=== PATIENT | male | born 1965 | race Caucasian/White ===

== ENCOUNTER 2016-05-20 12:14 | Emergency (ER) | payer OTHER, MEDICAID ==
--- NOTE | 2016-05-20 12:51 | EDPHY ---
H & P Smoking Status: Unknown if ever smoked Time Seen by Provider: 05/20/16 12:15 HPI/ROS: CHIEF COMPLAINT: M1 hold HISTORY OF PRESENT ILLNESS: 51-year-old male presents to the emergency department by EMS on an M1 hold. The patient apparently was at [facility] and the psychiatrist placed him on an M1 hold and brought him to the emergency department. The patient states that he has been compliant with his medications. He has bipolar and schizophrenia. He was at [facility] for last few months and just discharged a few weeks ago. He denies substance abuse or alcohol. He denies chest pain or difficulty breathing. Denies abdominal pain. Denies any reported trauma. He denies suicidal ideation. Denies homicidal ideation. Denies auditory or visual hallucinations. REVIEW OF SYSTEMS: Constitutional: No fever, no chills. Eyes: No double or blurry vision. ENT: No sore throat. Respiratory: No cough, no shortness of breath. Cardiac: No chest pain. Gastrointestinal: No abdominal pain, vomiting or diarrhea. Genitourinary: No dysuria. Musculoskeletal: No neck or back pain. Skin: No rashes. Neurological: No headache. (Reyna Aguero) Past Medical/Surgical History: Bipolar, schizophrenia (More,Reyna M) Social History: Single and lives alone in [place] (Reyna Aguero M) Physical Exam: General Appearance: Alert, no distress. Flat affect. Poor eye contact. Eyes: Pupils equal and round. Extraocular motions are all intact. ENT: Mouth: Mucous membranes moist. Respiratory: No wheezing, rhonchi, or rales, lungs are clear to auscultation. Cardiovascular: Regular rate and rhythm. Gastrointestinal: Abdomen is soft and nontender, no masses, no rebound or guarding, bowel sounds normal. Neurological: Alert and oriented x 3, cranial nerves II through XII grossly intact Skin: Warm and dry, no rashes. Musculoskeletal: Nontender to palpate along the cervical, thoracic or lumbar spine. Neck is supple. Extremities: Full range of motion and no peripheral edema. Psychiatric: Patient is oriented X 3, there is no agitation. (Reyna Aguero M) Constitutional: Initial Vital Signs Temperature (C) 36.9 C 05/20/16 12:14 Heart Rate 86 05/20/16 12:14 Respiratory Rate 18 05/20/16 12:14 Blood Pressure 132/81 H 05/20/16 12:14 O2 Sat (%) 93 05/20/16 12:14 O2 Delivery Mode Room Air Allergies/Adverse Reactions: chlorpromazine HCl [From Thorazine] Allergy (Verified 08/28/15 13:36) divalproex sodium [From Depakote] Allergy (Verified 08/28/15 13:36) Home Medications: Medication Instructions Recorded Unobtainable 08/28/15 Medical Decision Making ED Course/Re-evaluation: 51-year-old male presents to the emergency department on M1 hold. Once the patient is medically cleared, he will be evaluated by mental health. (Reyna Aguero) Care assumed by me from Reyna Aguero pending mental health evaluation. Patient has been seen by mental health. He will require placement. [address] Dillon pending placement. There been no issues with this patient during my care. (Remy Remy) Differential Diagnosis: Depression including functional and major depression, situational depression, medication side effect, drugs and alcohol abuse. (Reyna Aguero) Care Turn Over: Care will be turned over to Dr. Remy for diposition and plan. (Reyna Aguero) - Data Points Laboratory Results: Laboratory Results 05/20/16 12:40 05/20/16 12:40 05/20/16 05/20/16 05/20/16 13:33 12:40 12:40 WBC 10.92 10^3/uL H 10^3/uL (3.80-9.50) RBC 5.23 10^6/uL 10^6/uL (4.40-6.38) Hgb 15.2 g/dL g/dL (13.7-17.5) Hct 44.5 % % (40.0-51.0) MCV 85.1 fL fL (81.5-99.8) MCH 29.1 pg pg (27.9-34.1) MCHC 34.2 g/dL g/dL (32.4-36.7) RDW 12.5 % % (11.5-15.2) Plt Count 235 10^3/uL 10^3/uL (150-400) MPV 10.5 fL fL (8.7-11.7) Neut % (Auto) 64.2 % % (39.3-74.2) Lymph % (Auto) 24.0 % % (15.0-45.0) [place] % (Auto) 8.0 % % (4.5-13.0) Eos % (Auto) 2.6 % % (0.6-7.6) Baso % (Auto) 0.7 % % (0.3-1.7) Nucleat RBC Rel Count 0.0 % % (0.0-0.2) Absolute Neuts (auto) 7.02 10^3/uL H 10^3/uL (1.70-6.50) Absolute Lymphs (auto) 2.62 10^3/uL 10^3/uL (1.00-3.00) Absolute Monos (auto) 0.87 10^3/uL H 10^3/uL (0.30-0.80) Absolute Eos (auto) 0.28 10^3/uL 10^3/uL (0.03-0.40) Absolute Basos (auto) 0.08 10^3/uL 10^3/uL (0.02-0.10) Absolute Nucleated RBC 0.00 10^3/uL 10^3/uL (0-0.01) Immature Gran % 0.5 % % (0.0-1.1) Immature Gran # 0.05 10^3/uL 10^3/uL (0.00-0.10) Sodium 134 mEq/L mEq/L (134-144) Potassium 4.6 mEq/L mEq/L (3.5-5.2) Chloride 95 mEq/L L mEq/L (97-110) Carbon Dioxide 27 mEq/l mEq/l (22-31) Anion Gap 12 mEq/L mEq/L (8-16) BUN 17 mg/dL mg/dL (7-23) Creatinine 0.9 mg/dL mg/dL (0.7-1.3) Estimated GFR > 60 Glucose 257 mg/dL H mg/dL (70-100) Calcium 9.4 mg/dL mg/dL (8.5-10.4) TSH 1.410 uIU/mL uIU/mL (0.465-4.680) Urine Opiates Screen NEGATIVE (NEGATIVE) Urine Barbiturates NEGATIVE (NEGATIVE) Ur Phencyclidine Scrn NEGATIVE (NEGATIVE) Ur Amphetamine Screen NEGATIVE (NEGATIVE) U Benzodiazepines Scrn NON-NEGATIVE H (NEGATIVE) Urine Cocaine Screen NEGATIVE (NEGATIVE) U Marijuana (THC) Screen NEGATIVE (NEGATIVE) Ethyl Alcohol < 10 mg/dL mg/dL (0-10) Departure - Departure Clinical Impression: Bipolar 1 disorder Schizophrenia Qualifiers: Schizophrenia type: unspecified Qualified Code(s): F20.9 - Schizophrenia, unspecified Condition: Good Referrals: Patient,NotPresent [Unknown] - As per Instructions
[2016-05-20 13:13] LABS: % IMMATURE GRANULYOCYTES 0.5 % (0.0-1.1); ABSOLUTE IMMATURE GRANULOCYTES 0.05 10^3/uL (0.00-0.10); ADD DIFF? NO; ADD MORPH? NO; ADD SCAN? NO; ATYPICAL LYMPHOCYTE FLAG 30 (0-99); FRAGMENT RBC FLAG 0 (0-99); HEMATOCRIT 44.5 % (40.0-51.0); HEMOGLOBIN 15.2 g/dL (13.7-17.5); LEFT SHIFT FLG 0 (0-99); LIPEMIA HEMOLYSIS FLAG 90 (0-99); MEAN CELL HEMOGLOBIN 29.1 pg (27.9-34.1); MEAN CELL HEMOGLOBIN CONCENTR. 34.2 g/dL (32.4-36.7); MEAN CELL VOLUME 85.1 fL (81.5-99.8); MEAN PLATELET VOLUME 10.5 fL (8.7-11.7); PLATELET CLUMPS FLAG 0 (0-99); PLATELET COUNT 235 10^3/uL (150-400); RED BLOOD CELL COUNT 5.23 10^6/uL (4.40-6.38); RED CELL DISTRIBUTION WIDTH 12.5 % (11.5-15.2)
[2016-05-20 13:33] LABS: ANION GAP 12 mEq/L (8-16); CALCIUM 9.4 mg/dL (8.5-10.4); CARBON DIOXIDE 27 mEq/l (22-31); CHLORIDE 95 mEq/L (97-110); CREATININE 0.9 mg/dL (0.7-1.3); ETHANOL SERUM < 10 mg/dL (0-10); GLOMERULAR FILTRATION RATE > 60; GLUCOSE 257 mg/dL (70-100); POTASSIUM 4.6 mEq/L (3.5-5.2); SODIUM 134 mEq/L (134-144)
[2016-05-21 08:56] VITALS: RESP 18; O2SAT 94
[2016-05-21 10:05] LABS: ANION GAP 8 mEq/L (8-16); CALCIUM 9.3 mg/dL (8.5-10.4); CARBON DIOXIDE 29 mEq/l (22-31); CHLORIDE 96 mEq/L (97-110); CREATININE 0.9 mg/dL (0.7-1.3); GLOMERULAR FILTRATION RATE > 60; GLUCOSE 250 mg/dL (70-100); LITHIUM 0.2 mEq/L (0.6-1.2); POTASSIUM 4.9 mEq/L (3.5-5.2); SODIUM 133 mEq/L (134-144)
[2016-05-21] MEDS ORDERED: metFORMIN HCL 850 MG TAB PO SCH (10:30)
[2016-05-21] MEDS ORDERED: QUEtiapine FUMARATE 300 MG TAB PO SCH (10:30)
[2016-05-21] MEDS ORDERED: BENZTROPINE MESYLATE 1 MG TAB PO SCH (10:30)
[2016-05-21] MEDS ORDERED: SERTRALINE HCL 25 MG TAB PO SCH (10:30)
[2016-05-21] MEDS ORDERED: LITHIUM CARBONATE ER 450 MG TAB PO SCH (10:30)
[2016-05-21] MEDS ORDERED: metFORMIN HCL 500 MG TAB PO SCH (11:00)
[2016-05-21 13:18] VITALS: BP 99/62; PULSE 102; TEMP 98.6
[2016-05-22] MEDS ORDERED: QUEtiapine FUMARATE 200 MG TAB PO SCH (09:00)
== END 2016-05-21 13:18 ==
LOC: EDUNIT#
DX: F31.9 Bipolar disorder, unspecified (principal); F20.9 Schizophrenia, unspecified
CPT/HCPCS: 80305; G0480

== ENCOUNTER 2016-07-03 22:11 | Inpatient (IN) | payer OTHER, MEDICAID ==
--- NOTE | 2016-07-03 22:19 | EDPHY ---
H & P Source: Patient, Police - Medical/Surgical History Hx Asthma: No Hx Chronic Respiratory Disease: No Hx Diabetes: Yes Hx Cardiac Disease: No Hx Renal Disease: No Hx Cirrhosis: No Hx Alcoholism: No Hx HIV/AIDS: No Hx Splenectomy or Spleen Trauma: No Other PMH: diabetes. Psychiatric illness when askled pt stated " all of them" - Social History Smoking Status: Unknown if ever smoked HPI/ROS: HPI CHIEF COMPLAINT: Detainer, Court Order to go to er with police, "I will not talk to you" HISTORY OF PRESENT ILLNESS: This patient 51-year-old male significant past medical history for schizoaffective disorder and bipolar he presents emergency room on M1 hold by police after he has missed multiple appointments with his [facility] in psychiatrist. He has missed multiple appointments they have concerned that he is not taking his court-ordered medications. Due to him missing multiple appointments they called police to place him on M1 hold and bring him to the emergency room. Currently upon arrival to the emergency room he comes in police custody he is on a court ordered M1 hold. He will not talk to me he will not answer any of my questions he seems very angry and frustrated that he is here in the emergency room. History and review of systems somewhat limited due to patient not wanting to speak with me. Past Medical History: Schizoaffective disorder, bipolar disorder Past Surgical History: Unknown surgical history Social History: Unknown at this time Family History: Unknown ROS REVIEW OF SYSTEMS: Limited due to patient wanting to speak with me. Exam Constitutional appears angry and frustrated triage nursing summary reviewed, vital signs reviewed, awake/alert. Eyes normal conjunctivae and sclera, EOMI, PERRLA. HENT normal inspection, atraumatic, moist mucus membranes, no epistaxis, neck supple/ no meningismus, no raccoon eyes. Respiratory clear to auscultation bilaterally, normal breath sounds, no respiratory distress, no wheezing. Cardiovascular rate normal, regular rhythm, no murmur, no edema, distal pulses normal. Gastrointestinal soft, non-tender, no rebound, no guarding, normal bowel sounds, no distension, no pulsatile mass. Genitourinary no CVA tenderness. Musculoskeletal no midline vertebral tenderness, full range of motion, no calf swelling, no tenderness of extremities, no meningismus, good pulses, neurovascularly intact. Skin pink, warm, & dry, no rash, skin atraumatic. Neurologic awake, alert and oriented x 3, AAOx3, moves all 4 extremities equally, motor intact, sensory intact, CN II-XII intact, normal cerebellar, normal vision, normal speech. Psychiatric angry frustrated Heme/Lymph/Immune no lymphadenopathy. Differential Diagnosis: Includes but is not limited to in a particular order, underlying schizoaffective disorder, bipolar disorder, depression, ace, acute psychosis, medication noncompliance Medical Decision Making: this patient is on Detaine, court-ordered to come to er , missing multiple psychiatric appointments. Unclear if he is taking his medications. History of schizoaffective bipolar disorder. Patient have a blood draw for medical clearance he will need automatic mental health evaluation given court ordered M1 hold. Patient will not interact with me her speak with me does appear angry. He did tell me the "fuck off" 2228; at this time blood will be drawn for medical clearance. (Gregor Dillon) Constitutional: Initial Vital Signs Temperature (C) 36.9 C 07/03/16 22:25 Heart Rate 120 H 07/03/16 22:25 Respiratory Rate 16 07/03/16 22:25 Blood Pressure 170/98 H 07/03/16 22:25 O2 Sat (%) 94 07/03/16 22:25 O2 Delivery Mode Room Air Allergies/Adverse Reactions: chlorpromazine HCl [From Thorazine] Allergy (Verified 07/03/16 22:24) divalproex sodium [From Depakote] Allergy (Verified 07/03/16 22:24) Home Medications: Medication Instructions Recorded Atorvastatin Calcium [Lipitor 10 10 mg PO HS 05/21/16 mg (*)] Benztropine Mesylate [Cogentin (*)] 1 mg PO BID 05/21/16 Nardin Carbonate ER [Eskalith Cr 450 mg PO HS 05/21/16 450 mg (*)] Fleming-3 Fatty Acids [Fish Oil 1000 1,000 mg PO DAILY 05/21/16 mg (*)] Pioglitazone HCl [Actos 15mg (*)] 45 mg PO DAILY 05/21/16 metFORMIN HCL [Glucophage 500 mg 1,000 mg PO BIDMEAL 05/21/16 (*)] QUEtiapine FUMARATE [Seroquel 200 200 mg PO HS 07/04/16 mg (*)] fluPHENAZine HCL [Fluphenazine HCl] 50 mg PO Q21D 07/06/16 Medical Decision Making ED Course/Re-evaluation: 0700: Patient signed out to me by Dr. Dillon at shift change. 1030: I reassessed the patient. He has become verbally abusive to staff, repeatedly shouting "fuck you bitch, you cocksucker" and calling me an " inferior subspecies." He has been placed on a mental health hold and will be evaluated by mental health team. 1342: Consulted with mental health team. They are seeking inpatient placement. (Zion Beckham) 3pm--I assumed care of this pt at shift change. He is diabetic and takes metformin. I will order his usual dose of metformin and check blood sugars qac. He is also on lithium; lithium level ordered. Pharmacy will do a medication reconciliation. 11pm-signed over to Dr. Dillon at shift change (Kayla Johnson) Assumed care of the patient at shift change at 3:00 p.m. pending psychiatric placement. The patient is turned over to Dr. Baig at 11pm pending placement. (Hank Armijo) 4:00 a.m.- The patient has been stable throughout my shift thus far. He is still awaiting psychiatric placement. The case will be turned over to Dr. Beckham at change of shift at 7:00 a.m.. (Stefany Gonzales) 0550AM: No acute events overnight. Detainer. Patient pending placement. At 7: 00 a.m. patient turned over to Dr. Beckham (Gregor Dillon) - Data Points Laboratory Results: Laboratory Results 07/03/16 22:52 07/03/16 22:25 Medications Given: Discontinued Medications Atorvastatin Calcium (Lipitor) 10 mg PO EDNOW ONE Stop: 07/05/16 20:37 Last Admin: 07/05/16 21:04 Dose: 10 mg Benztropine Mesylate (Cogentin) 1 mg PO BID ONE Stop: 07/05/16 12:54 Last Admin: 07/05/16 14:02 Dose: 1 mg Benztropine Mesylate (Cogentin) 1 mg PO EDNOW ONE Stop: 07/05/16 20:31 Last Admin: 07/05/16 21:04 Dose: 1 mg Nardin Carbonate (Eskalith Cr) 450 mg PO ONCE ONE Stop: 07/05/16 18:01 Last Admin: 07/05/16 21:04 Dose: 450 mg Nardin Carbonate (Nardin Carbonate) 450 mg PO EDNOW ONE Stop: 07/07/16 09:19 Last Admin: 07/06/16 10:03 Dose: 450 mg Lorazepam (Ativan) 1 mg PO EDNOW ONE Stop: 07/04/16 10:38 Last Admin: 07/04/16 10:38 Dose: 1 mg Lorazepam (Ativan) 1 mg PO EDNOW ONE Stop: 07/06/16 13:21 Last Admin: 07/06/16 13:43 Dose: 1 mg Metformin HCl (Glucophage) 1,000 mg PO BID ON LICENSE OF [facility] Stop: 01/01/17 20:59 Last Admin: 07/06/16 10:05 Dose: Not Given Metformin HCl (Glucophage) 1,000 mg PO ONCE ONE Stop: 07/05/16 20:31 Last Admin: 07/05/16 21:04 Dose: 1,000 mg Pioglitazone HCl (Actos) 45 mg PO DAILY ON LICENSE OF [facility] Stop: 01/02/17 08:59 Last Admin: 07/06/16 10:04 Dose: 45 mg Quetiapine Fumarate (Seroquel) 50 mg PO BID ON LICENSE OF [facility] Stop: 01/01/17 12:59 Last Admin: 07/06/16 10:05 Dose: Not Given Quetiapine Fumarate (Seroquel) 50 mg PO ONCE ONE Stop: 07/05/16 20:37 Last Admin: 07/05/16 21:05 Dose: Not Given Quetiapine Fumarate (Seroquel) 400 mg PO EDNOW ONE Stop: 07/05/16 21:01 Last Admin: 07/05/16 21:05 Dose: 400 mg Departure - Departure Disposition: [facility] IP Clinical Impression: Acute (undifferentiated) schizophrenia Condition: Good
[2016-07-03 22:37] LABS: ADD DIFF? NO; ADD MORPH? NO
[2016-07-03 22:42] LABS: ADD SCAN? NO
[2016-07-03 22:54] LABS: ANION GAP 15 mEq/L (8-16); CALCIUM 9.8 mg/dL (8.5-10.4); CARBON DIOXIDE 21 mEq/l (22-31); CHLORIDE 97 mEq/L (97-110); CREATININE 0.7 mg/dL (0.7-1.3); ETHANOL SERUM < 10 mg/dL (0-10); GLOMERULAR FILTRATION RATE > 60; GLUCOSE 239 mg/dL (70-100); POTASSIUM 4.6 mEq/L (3.5-5.2); SALICYLATE < 1.0 mg/dL (2.0-20.0); SODIUM 133 mEq/L (134-144)
[2016-07-03 23:04] LABS: % IMMATURE GRANULYOCYTES 0.5 % (0.0-1.1); ABSOLUTE IMMATURE GRANULOCYTES 0.06 10^3/uL (0.00-0.10); ADD DIFF? NO; ADD MORPH? NO; ADD SCAN? NO; ATYPICAL LYMPHOCYTE FLAG 20 (0-99); FRAGMENT RBC FLAG 0 (0-99); HEMOGLOBIN 15.4 g/dL (13.7-17.5); LEFT SHIFT FLG 0 (0-99); LIPEMIA HEMOLYSIS FLAG 90 (0-99); MEAN CELL HEMOGLOBIN CONCENTR. 34.2 g/dL (32.4-36.7); MEAN CELL VOLUME 84.7 fL (81.5-99.8); MEAN PLATELET VOLUME 9.8 fL (8.7-11.7); PLATELET CLUMPS FLAG 10 (0-99); PLATELET COUNT 260 10^3/uL (150-400); RED BLOOD CELL COUNT 5.31 10^6/uL (4.40-6.38)
[2016-07-04] MEDS ORDERED: LORazepam 1 MG TAB PO ONE (10:37)
[2016-07-04 17:43] LABS: LITHIUM < 0.2 mEq/L (0.6-1.2)
[2016-07-05] MEDS ORDERED: BENZTROPINE MESYLATE 1 MG TAB PO ONE ×2 (12:53→20:30)
[2016-07-05] MEDS ORDERED: OLANZapine 10 MG/2 ML VIAL IM ONE (13:29)
[2016-07-05] MEDS: QUEtiapine FUMARATE 50 MG TAB PO SCH ×2 (14:01→21:05)
[2016-07-05] MEDS: metFORMIN HCL 500 MG TAB PO SCH (14:02)
[2016-07-05] MEDS: PIOGLITAZONE HCL 15 MG TAB PO SCH (14:02)
[2016-07-05] MEDS ORDERED: QUEtiapine FUMARATE 50 MG TAB PO SCH (18:00)
[2016-07-05] MEDS ORDERED: LITHIUM CARBONATE ER 450 MG TAB PO ONE (18:00)
[2016-07-05] MEDS ORDERED: QUEtiapine FUMARATE 25 MG TAB PO ONE (20:29)
[2016-07-05] MEDS ORDERED: metFORMIN HCL 500 MG TAB PO ONE (20:30)
[2016-07-05] MEDS ORDERED: QUEtiapine FUMARATE 50 MG TAB PO ONE (20:36)
[2016-07-05] MEDS ORDERED: ATORVASTATIN CALCIUM 10 MG TAB PO ONE (20:36)
[2016-07-05] MEDS ORDERED: QUEtiapine FUMARATE 200 MG TAB PO ONE (21:00)
[2016-07-06] MEDS: metFORMIN HCL 500 MG TAB PO SCH ×3 (10:04→17:06)
[2016-07-06] MEDS: PIOGLITAZONE HCL 15 MG TAB PO SCH (10:04)
[2016-07-06] MEDS: QUEtiapine FUMARATE 50 MG TAB PO SCH ×2 (10:04→10:05)
[2016-07-06] MEDS ORDERED: LORazepam 1 MG TAB PO ONE (13:20)
[2016-07-06] MEDS ORDERED: OLANZapine DISINTEGR 10 MG TAB PO PRN (16:45)
[2016-07-06] MEDS ORDERED: QUEtiapine FUMARATE 50 MG TAB PO PRN (16:46)
[2016-07-06] MEDS ORDERED: ACETAMINOPHEN 325 MG TAB PO PRN (16:49)
[2016-07-06] MEDS ORDERED: LORazepam 0.5 MG TAB PO PRN (16:56)
[2016-07-06] MEDS ORDERED: MAGNESIUM HYDROXIDE 30 ML UDCUP PO PRN (16:56)
[2016-07-06] MEDS ORDERED: MAG HYDROX/AL HYDROX/SIMETH 30 ML UDCUP PO PRN (16:57)
[2016-07-06] MEDS ORDERED: NICOTINE POLACRILEX 2 MG GUM B PRN (16:57)
[2016-07-06] MEDS: BENZTROPINE MESYLATE 1 MG TAB PO SCH (20:34)
[2016-07-06] MEDS: ATORVASTATIN CALCIUM 10 MG TAB PO SCH (20:34)
[2016-07-06] MEDS: LITHIUM CARBONATE ER 450 MG TAB PO SCH (20:34)
[2016-07-06] MEDS: QUEtiapine FUMARATE 200 MG TAB PO SCH (20:34)
[2016-07-07] MEDS: metFORMIN HCL 500 MG TAB PO SCH ×2 (08:19→16:54)
[2016-07-07] MEDS: OMEGA-3 FATTY ACIDS 1,000 MG CAP PO SCH (08:20)
[2016-07-07] MEDS: BENZTROPINE MESYLATE 1 MG TAB PO SCH ×2 (08:20→20:38)
[2016-07-07] MEDS: PIOGLITAZONE HCL 15 MG TAB PO SCH (08:21)
[2016-07-07] MEDS ORDERED: LITHIUM CARBONATE 300 MG TAB PO ONE (09:18)
--- NOTE | 2016-07-07 15:14 | BAPA ---
[f rep st] ADMISSION PSYCHIATRIC ASSESSMENT PATIENT IDENTIFICATION: The patient presents as a 51-year-old, white male, who is admitted to [address] [place] [address] on an M1 hold following medical clearance in the emergency room, for complaints of an acute psychotic decompensation. The patient has a chronic history positive for a major psychotic disorder, consistent with a spectrum disorder on the axis between Schizophrenia and Schizoaffective disorder. He is on SSDI for an extended period of time. 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 He has remained actively certified on a long-term certification and court-ordered medications which are due to next be reviewed on 10/25/2016. He has progressively decompensated since his discharge from the [facility] inpatient psychiatry service on 06/10. CHIEF COMPLAINT: "There is no respect; take your college education and leave me alone." HISTORY OF PRESENT ILLNESS: As referenced above, the patient has a chronic syndromal history associated with major instability over the years. He is a long-term open case with [facility]. Over the past year, he has spent most of his time as an inpatient over a series of multiple hospitalizations. Most recently, he was hospitalized at [facility] in March for complaints of an acute psychotic decompensation associated with aggressive dyscontrol. While in [facility], the patient was discontinued on 2 depo medications he was receiving as an outpatient, including Invega 234 mg IM q.4 weeks, alternating with Abilify 400 mg IM q.4 weeks. This change was recommended by his community psychiatrist with P-Dr. Carolyn Cortez. He was transitioned onto Prolixin Decanoate, initially dosed at 37.4 mg. The patient reportedly partially restabilized and was stepped down to live temporarily at the [facility]. However, he regressed over a period of several weeks and required rehospitalization at the [facility] inpatient service on 05/21/2016. He remained at [facility] through his discharge on 06/10/2016 when he was discharged directly to return to his appointment at the care of Dr. Cortez and the [facility] team. While at [facility], he did receive a depo Prolixin injection dosed at 50 mg and was discharged with the next date for injection scheduled for 07/01/2016. The patient has a chronic history when living alone of allowing street vagrants to live in his house. These people often are addictive and their habits and his apartment residence has become known to the local community as an active drug house. This apparently began to happen again after his discharge from [facility]. The patient activates his methamphetamine habit when his house is full of people from the addictive community. He predictably began to deteriorate. With attempts to get him to come to the clinic for his injection, the staff observed his mental status to become increasingly agitated, verbally abusive, and ultimately resistant to taking the usual cab ride into the clinic to get the injection. Therefore, the patient was unlikely to have been medicated since his discharge 06/10 until he was brought in a decompensated state on a court-ordered M3 recommended by his community psychiatrist, Dr. Cortez. He was brought to the [facility] emergency room by the police in the p.m. 2016. On direct exam, the patient presented initially as angry, noncommunicative, alert, and obviously preoccupied with internal stimuli given his acute psychosis. He did cooperate with a physical exam which was negative for any focal or systemic acuity. On direct exam by the [facility] territory sales consultant, the patient presented as disheveled, irritable, guarded, evidencing lability of affect, suspiciousness, and largely uncooperative in answering questions. He was noted during his time in the emergency room to be, at times, verbally abusive to nursing staff and to the examining emergency room physician. In the emergency room, he was medicated with home medications including Lipitor, Cogentin, lithium 450 mg x1, Ativan 1 mg x1, Seroquel 50 mg p.o. x1 and 400 mg p.o. x1. He also cooperated with taking metformin, pioglitazone, Zoloft 25 mg p.o., and Prolixin 10 mg p.o. The patient stayed overnight in the emergency room until a bed was available on . He was then admitted on an M1 hold, deemed gravely disabled secondary to his psychotic acuity and acute inability to care for himself safely in the emergency room. Lab screens included a BMP- negative other than an elevated blood sugar of 239, and an unremarkable CBC. Apparently, a toxic screen was not successfully obtained. The admitting staff noted the patient to be irritable and withdrawn other than for sporadic, verbally abusive comments. Patient did cooperate with the admission protocol by [facility] and withdrew to his room. PAST PSYCHIATRIC HISTORY: Details to be clarified in intake phase. We do know the patient has been engaged in a alf certification and COM.. His psychiatric history is chronic, including his initial period of certified treatment begun on 04/01/2003. He is a long-term open client with [facility] and currently is followed by Dr. Carolyn Cortez and the [facility] Community Treatment Team. The patient is known to have a chronic thought disorder which improves partially with decreased intensity and decreased aggressive acting up when he is sustained on depo medications and remains off methamphetamine. Per intake from Dr. Cortez, the patient is never free of psychosis and is extremely responsive to the destructive effects of methamphetamine on his mental status when he uses. He has a primary caregiver in his biologic mother who cleans his apartment, gives him money and prepares his food. In effect, this is a history consistent with a marginal community adaptation which, at times, on a regular basis, places the patient at high risk. MEDICAL HISTORY: The patient currently has no active medical problems other than his dyscontrolled diabetes mellitus-type 2; blood sugar as reference was 239 on admission; the patient was obviously not complying with his metformin regimen. KNOWN ALLERGIES: The patient has known medication allergies to Thorazine and Depakote; there are no known food or environmental allergies. MEDICAL REVIEW OF SYSTEMS: Negative. SUBSTANCE ABUSE HISTORY: The patient has a chronic known use problem with methamphetamine primarily; patient has also abused THC and alcohol in the past, along with the question of benzodiazepines. LEGAL HISTORY: The patient has an extensive legal record; details will be clarified but we do know the patient has been arrested for assaulting police and other people and/or being disruptive with verbal abuse and psychosis in public. Patient's current legal status is unclear and will be determined in intake phase. PERSONAL HISTORY/FAMILY HISTORY: Details to be clarified from previous records. We do know the patient has been for 4-5 years. It is unclear if he has any biologic children. We do know biologic family, including his mother and sister, live in the community and mother particularly is supportive. We do know that patient's common-law several years ago, reportedly from cancer. We do know the patient's residence in the community is known as a "drug house" by the local community, particularly the local police force. MENTAL STATUS EXAM: On direct exam, the patient presents as an unkempt, middle- age man looking his stated age. The patient presents as reticent, irritable, and intermittently verbally abusive, focused at myself, during brief contacts. His thought pattern, when he does speak, is floridly paranoid, referential, and dismissive. He remains in behavioral control and does not evidence any physically threatening behavior. His appearance suggests now self-neglect of ADLs. He is not cooperative during the contact in allowing me to assess his mental status in more detail, his short-term and long-term syndromal history. He does hear reintegrative support. He does state that he will cooperate with a depo injection, which will be offered to him tomorrow. FORMULATION: The patient presents as a 51-year-old, white male, who presents with a chronic and unstable history, positive for a major psychotic disorder on the spectrum axis between Schizophrenia and Schizoaffective Disorder. He also presents with a severe substance abuse history involving methamphetamine, and to a lesser degree, alcohol, THC, and possibly benzodiazepines. This decompensation appears similar to a chronic pattern of not complying with treatment effectively following inpatient discharge and complicating his psychotic vulnerability by using methamphetamine. Urine toxic screen was not initially identified but is identified and tested positively for amphetamines, benzodiazepines, and THC. In addition to the primary immediate goal of stabilizing the patient's mental status to an optimal degree, we will also focus on obtaining a more detailed assessment long-term and collaborate with the community outpatient team and Dr. Cortez to formulate a definitive discharge plan to maintain the patient in a sober environment and optimize his stabilizing and maintaining a stable mental status. ADMISSION DIAGNOSIS: [place] I: 1. Schizophrenic Spectrum Disorder-acute exacerbation, including florid psychosis and dyscontrolled verbal and physical aggressive behaviors prior to admission. 2. Methamphetamine use disorder-chronic, severe, active prior to admission. 3. THC use disorder-severe, chronic, active prior to admission. 4. Alcohol use disorder-chronic, moderate, question activity prior to admission. 5. Rule out benzodiazepine use disorder. [place] II: Deferred. [place] III: 1. No active medical problems. 2. S/P diabetes mellitus-2, dyscontrol secondary to noncompliance with metformin regimen. [place] IV: Stressors associated with activation of patient's addictive disorder and noncompliance with psychiatric medications since his last inpatient discharge 06/10/2016. [place] V: Admission Global Assessment of Functioning 30. INITIAL TREATMENT PLAN: 1. Nursing: Complete admission assessment; monitor patient for safety and assault; reinforce compliance with medications and cares; orient patient as tolerated with the structure of the social milieu and group program, and invite participation when further stabilized. 2. Psychiatry: Complete admission assessment; provide daily E/M contacts to complete diagnostic formulation, apply reintegrative psychotherapeutic to contacts daily, assess and manage patient's psychoactive medication needs; ally patient to a definitive discharge plan with links in place at discharge. 3. Clinical Coordinator: See patient daily to expand the database; contact relevant collaterals to complete information base and workup; formulate definitive discharge plan with links in place at discharge. 4. Admission medical consultation: Pending. 5. Medications: Will currently continue patient on standing Seroquel at 200 mg p.o. at bedtime and Zyprexa 10 mg p.o. q.4h p.r.n.; will proceed with depo Prolixin injection at 75 mg IM within the next 48 hours; will confer with Dr. Cortez about medication management in 1st phase. 6. Primary inpatient goals: Stabilize mental status sufficient for discharge; complete diagnostic formulation and link patient to definitive discharge plan which will enhance his sobriety and compliance with community treatment. /[id number]/MODL MTDD
--- NOTE | 2016-07-07 16:10 | GHP ---
[f rep st] HISTORY AND PHYSICAL DATE OF ADMISSION: 07/06/2016 CHIEF COMPLAINT: Missing appearance at his court mandated mental health provider. HISTORY OF PRESENT ILLNESS: A 51-year-old male with a history of schizoaffective disorder and bipol ar who presented to the emergency department on 07/06/2016 after being placed on an M1 hold by syed duncan, when noted to miss his [facility] appointments with his psychiatrist which were court ordered. Upon arrival to the inpatient psychiatric unit, patient is complaining of his rights being violated. Denies any chest pain. Denies shortness of breath. Denies vision changes. Denies head ache. Denies abdominal pain, nausea, or vomiting. Denies any recent diarrhea, dysuria, hematuria, rashes, or known sick contacts. PAST MEDICAL HISTORY: 1. Schizoaffective disorder. 2. Bipolar disorder. SOCIAL HISTORY: Negative for tobacco or alcohol he. Denies the use of illicit drugs or marijuana. FAMILY HISTORY: The patient tells me is unknown. PHYSICAL EXAMINATION: VITAL SIGNS: Blood pressure 117/73, heart rate 95, respiratory rate 16, 98% on room air, 36.5. GENERAL: This is a healthy-appearing middle-aged male in no acute distress. HE ENT: Notable for dry mucous membranes. Eye exam is negative for any icterus. CARDIAC: Patient is regular rate and rhythm. PULMONARY: He is clear to auscultation bilaterally. GASTROINTESTINAL: Positive bowel sounds. Abdomen is soft and nontender in all 4 quadrants. MUSCULOSKELETAL: Negativ e for any lower extremity edema. SKIN: Negative for any rashes. NEUROLOGIC: The patient is alert and oriented. PSYCHIATRIC: He is agitated and frustrated. LABORATORY DATA: White count is 11.03, hematocrit 45, platelets 260. ASSESSMENT AND PLAN: This is a 51-year-old male with schizoaffective disorder. Schizoaffective disorder: This will be managed by the primary psychiatric team. Upon review of the patient's examination and laboratory workup, there are no reversible medical issues currently prese nt. We will happily follow along with any issues that arise. I have discussed the case with the RN on the psychiatric floor. The patient was encouraged to take good oral intake. They will call [facility] h questions. /[id number]/MODL
[2016-07-07] MEDS: ATORVASTATIN CALCIUM 10 MG TAB PO SCH (20:38)
[2016-07-07] MEDS: QUEtiapine FUMARATE 200 MG TAB PO SCH (20:39)
[2016-07-07] MEDS: LITHIUM CARBONATE ER 450 MG TAB PO SCH (20:39)
[2016-07-08] MEDS: BENZTROPINE MESYLATE 1 MG TAB PO SCH ×2 (08:31→20:36)
[2016-07-08] MEDS: metFORMIN HCL 500 MG TAB PO SCH ×2 (08:33→16:59)
[2016-07-08] MEDS: PIOGLITAZONE HCL 15 MG TAB PO SCH (08:33)
[2016-07-08] MEDS: OMEGA-3 FATTY ACIDS 1,000 MG CAP PO SCH (08:33)
[2016-07-08] MEDS ORDERED: FLUPHENAZINE DECANOATE 25 MG/ML 5 ML VIAL IM SCH (10:30)
--- NOTE | 2016-07-08 11:49 | SOAPPROG ---
MARISOL Progress Note Assessment/Plan: Assessment: Plan: 07/08/16 11:41 DAY ' UPDATE: Nursing repots has remained in behavioral control, evidencing acute PI thinking in form of sporadic outbursts of verbally abusive language; isolating but taking meals with other patients in DR in control and did extend some social time in DR yesterday; INTAKE/ DR. 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 She recommends keeping pt on Prolixin Decanoate at 50 mg IM which i will do with expected injection later today. ON EXAM: pt seen sitting up in DR; maintains control and tolerates contact better altho does reach point in time when he again begins to escalate with PI and verbal harshness; does understand that the first prolixin injection will be later today ASSESSMENT/PLAN: residual psychotic acuity/ first Prolixin depot injection today = 50 mg IM; continue current management plan; call to [facility] pending to expand the data base 07/09/16 07:54 Objective: Vital Signs Temp Pulse Resp BP Pulse Ox 36.6 C 100 14 125/76 H 95 07/08/16 00:12 07/08/16 00:12 07/08/16 00:12 07/08/16 00:12 07/08/16 00:12 ICD10 Worksheet Patient Problems: Problems Problem Status Onset Acute (undifferentiated) schizophrenia Acute
[2016-07-08] MEDS: ATORVASTATIN CALCIUM 10 MG TAB PO SCH (20:36)
[2016-07-08] MEDS: LITHIUM CARBONATE ER 450 MG TAB PO SCH (20:37)
[2016-07-08] MEDS: QUEtiapine FUMARATE 200 MG TAB PO SCH (20:37)
[2016-07-09] MEDS: BENZTROPINE MESYLATE 1 MG TAB PO SCH ×2 (08:55→20:36)
[2016-07-09] MEDS: PIOGLITAZONE HCL 15 MG TAB PO SCH (08:56)
[2016-07-09] MEDS: OMEGA-3 FATTY ACIDS 1,000 MG CAP PO SCH (08:56)
[2016-07-09] MEDS: metFORMIN HCL 500 MG TAB PO SCH ×2 (08:56→17:09)
--- NOTE | 2016-07-09 11:17 | SOAPPROG ---
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 She recommends keeping pt on Prolixin Decanoate at 50 mg IM which i will do with expected injection later today. ON EXAM: pt seen sitting up in DR; maintains control and tolerates contact better altho does reach point in time when he again begins to escalate with PI and verbal harshness; does understand that the first prolixin injection will be later today ASSESSMENT/PLAN: residual psychotic acuity/ first Prolixin depot injection today = 50 mg IM; continue current management plan; call to [place] pending to expand the data base 07/09/16 11:10 UPDATE: Nursing reports that pt cooperated with depot injection yesterday pm without incident, has remained in behavioral, control, isolative, still vulnerable to abusive language form time to time and continues to appear internally preoccupied ON EXAM: seen briefly, rapidly regressed to verbal invectives after neutral speech for 2 - 3 min; stopped when I withdrew; continues with compliance with po meds, taking meals; minimal interaction with other pts albeit not verbally abusive with other pts. Assessment/PLAN: residual psychotic acuity in early phase improvement/ will reassess oral medications, outreach call to [facility] pending Objective: Vital Signs Temp Pulse Resp BP Pulse Ox 36.3 C 119 H 15 115/70 96 07/09/16 04:04 07/09/16 04:04 07/09/16 04:04 07/09/16 04:04 07/09/16 04:04 ICD10 Worksheet Patient Problems: Problems Problem Status Onset Acute (undifferentiated) schizophrenia Acute
[2016-07-09] MEDS: ATORVASTATIN CALCIUM 10 MG TAB PO SCH (20:35)
[2016-07-09] MEDS: QUEtiapine FUMARATE 200 MG TAB PO SCH (20:35)
[2016-07-09] MEDS: LITHIUM CARBONATE ER 450 MG TAB PO SCH (20:36)
--- NOTE | 2016-07-10 08:20 | SOAPPROG ---
MARISOL Progress Note Assessment/Plan: Assessment: Plan: 07/08/16 11:41 DAY ' UPDATE: Nursing repots has remained in behavioral control, evidencing acute PI thinking in form of sporadic outbursts of verbally abusive language; isolating but taking meals with other patients in DR in control and did extend some social time in DR yesterday; INTAKE/ DR. 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 She recommends keeping pt on Prolixin Decanoate at 50 mg IM which i will do with expected injection later today. ON EXAM: pt seen sitting up in DR; maintains control and tolerates contact better altho does reach point in time when he again begins to escalate with PI and verbal harshness; does understand that the first prolixin injection will be later today ASSESSMENT/PLAN: residual psychotic acuity/ first Prolixin depot injection today = 50 mg IM; continue current management plan; call to [facility] pending to expand the data base 07/09/16 07:54 Objective: Vital Signs Temp Pulse Resp BP Pulse Ox 36.6 C 97 16 134/79 H 95 07/10/16 05:21 07/10/16 05:21 07/10/16 05:21 07/10/16 05:21 07/10/16 05:21 ICD10 Worksheet Patient Problems: Problems Problem Status Onset Acute (undifferentiated) schizophrenia Acute
[2016-07-10] MEDS: metFORMIN HCL 500 MG TAB PO SCH ×2 (08:29→17:02)
[2016-07-10] MEDS: OMEGA-3 FATTY ACIDS 1,000 MG CAP PO SCH (08:29)
[2016-07-10] MEDS: BENZTROPINE MESYLATE 1 MG TAB PO SCH ×2 (08:29→20:34)
[2016-07-10] MEDS: PIOGLITAZONE HCL 15 MG TAB PO SCH (08:29)
--- NOTE | 2016-07-10 14:19 | SOAPPROG ---
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 She recommends keeping pt on Prolixin Decanoate at 50 mg IM which i will do with expected injection later today. ON EXAM: pt seen sitting up in DR; maintains control and tolerates contact better altho does reach point in time when he again begins to escalate with PI and verbal harshness; does understand that the first prolixin injection will be later today ASSESSMENT/PLAN: residual psychotic acuity/ first Prolixin depot injection today = 50 mg IM; continue current management plan; call to [facility] pending to expand the data base 07/09/16 14:13 DAY UPDATE: Nursing reports pt compliant with injection yesterday, continues compliant with cares/meds, slightly more conversant and visible in millieu ON EXAM: seen in room; calm but dismissive - turns back to me with moving his chair; begin quiet paranoid rant when I persist to engage him but content is more detailed and in conversant mode. Pt did hear that Dr Cuevas will speak together 07/13 to address long-term planning; pt did mention life goals include playing music and staying "free". ASSESSMENT/PLAN: some decrease in acuity of observable psychosis/ no change in current meds and management plan Objective: Vital Signs Temp Pulse Resp BP Pulse Ox 36.6 C 97 16 134/79 H 95 07/10/16 05:21 07/10/16 05:21 07/10/16 05:21 07/10/16 05:21 07/10/16 05:21 ICD10 Worksheet Patient Problems: Problems Problem Status Onset Acute (undifferentiated) schizophrenia Acute
[2016-07-10] MEDS: ATORVASTATIN CALCIUM 10 MG TAB PO SCH (20:34)
[2016-07-10] MEDS: QUEtiapine FUMARATE 200 MG TAB PO SCH (20:34)
[2016-07-10] MEDS: LITHIUM CARBONATE ER 450 MG TAB PO SCH (20:34)
[2016-07-11] MEDS: PIOGLITAZONE HCL 15 MG TAB PO SCH (08:19)
[2016-07-11] MEDS: BENZTROPINE MESYLATE 1 MG TAB PO SCH ×2 (08:20→20:38)
[2016-07-11] MEDS: OMEGA-3 FATTY ACIDS 1,000 MG CAP PO SCH (08:20)
[2016-07-11] MEDS: metFORMIN HCL 500 MG TAB PO SCH ×2 (08:20→17:23)
--- NOTE | 2016-07-11 15:32 | SOAPPROG ---
SOAP Progress Note Assessment/Plan: Assessment: Plan: 07/11/16 15:36 Remains agitated, but clearly improving. CCM. Subjective: Pt seen, discussed with staff, chart reviewed. He continues to pace the halls, swearing and conversing with unseen persons. He is compliant with meds. No bx problems. Objective: Vital Signs Temp Pulse Resp BP Pulse Ox 36.4 C 91 19 105/69 94 07/11/16 06:00 07/11/16 06:00 07/11/16 06:00 07/11/16 06:00 07/11/16 06:00 MSE: Agitated, pacing, but calm and interactive on 1:1. Marginally groomed. Affect is constricted, stable. Mood is "fine." TP generally linear. TC reveals some odd ideas and possible paranoia on interview, but constant RIS, with bizarre, loose ramblings such as "You bet the sons of bitches know about communion" followed by "Because I'm the one with the answers, not that f----er. " - Time Spent With Patient Time Spent With Patient: 25" - Pending Discharge Pending Discharge Within 24 Hours: No Pending Discharge Within 48 Hours: No ICD10 Worksheet Patient Problems: Problems Problem Status Onset Acute (undifferentiated) schizophrenia Acute
[2016-07-11] MEDS: LITHIUM CARBONATE ER 450 MG TAB PO SCH (20:37)
[2016-07-11] MEDS: ATORVASTATIN CALCIUM 10 MG TAB PO SCH (20:37)
[2016-07-11] MEDS: QUEtiapine FUMARATE 200 MG TAB PO SCH (20:38)
[2016-07-12] MEDS: metFORMIN HCL 500 MG TAB PO SCH ×2 (08:07→17:30)
[2016-07-12] MEDS: BENZTROPINE MESYLATE 1 MG TAB PO SCH ×2 (08:07→20:40)
[2016-07-12] MEDS: PIOGLITAZONE HCL 15 MG TAB PO SCH (08:07)
[2016-07-12] MEDS: OMEGA-3 FATTY ACIDS 1,000 MG CAP PO SCH (08:08)
--- NOTE | 2016-07-12 19:02 | SOAPPROG ---
SOAP Progress Note Assessment/Plan: Assessment: Plan: 07/11/16 15:36 Remains agitated, but clearly improving. CCM. 07/12/16 19:03 Continued gradual improvement. Too agitated and profane/verbally aggressive to consider d/c at this time. I discusses with him the criteria needed for the STC to be lifted inc: decrease in overall agitation, normal social interactions and medication compliance. CCM. Subjective: Pt seen, discussed with staff. A bit more agitated this morning. Pacing the halls singing loudly. Sitting on couch in front of TV swearing, ranting. Remains redirectable, however. Engaging with effort. Objective: Vital Signs Temp Pulse Resp BP Pulse Ox 36.4 C 97 16 109/72 96 07/12/16 06:00 07/12/16 06:00 07/12/16 06:00 07/12/16 06:00 07/12/16 06:00 MSE: Moderately agitated, verbally aggressive towards unseen persons. Able to engage with me, however. Pleasant and approp. Affect is constricted, angry. Mood is "shitty." TP tangential. TC reveals continued paranoid, yazidi, sexual thoughts/delusions, RIS, IOR's. - Time Spent With Patient Time Spent With Patient: 15" - Pending Discharge Pending Discharge Within 24 Hours: No Pending Discharge Within 48 Hours: No ICD10 Worksheet Patient Problems: Problems Problem Status Onset Acute (undifferentiated) schizophrenia Acute
[2016-07-12] MEDS: ATORVASTATIN CALCIUM 10 MG TAB PO SCH (20:40)
[2016-07-12] MEDS: LITHIUM CARBONATE ER 450 MG TAB PO SCH (20:40)
[2016-07-12] MEDS: QUEtiapine FUMARATE 200 MG TAB PO SCH (20:41)
--- NOTE | 2016-07-13 06:30 | SOAPPROG ---
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 She recommends keeping pt on Prolixin Decanoate at 50 mg IM which i will do with expected injection later today. ON EXAM: pt seen sitting up in DR; maintains control and tolerates contact better altho does reach point in time when he again begins to escalate with PI and verbal harshness; does understand that the first prolixin injection will be later today ASSESSMENT/PLAN: residual psychotic acuity/ first Prolixin depot injection today = 50 mg IM; continue current management plan; call to [place] pending to expand the data base 07/09/16 11:10 DAY UPDATE: Nursing reports that pt cooperated with depot injection yesterday pm without incident, has remained in behavioral, control, isolative, still vulnerable to abusive language form time to time and continues to appear internally preoccupied ON EXAM: seen briefly, rapidly regressed to verbal invectives after neutral speech for 2 - 3 min; stopped when I withdrew; continues with compliance with po meds, taking meals; minimal interaction with other pts albeit not verbally abusive with other pts. Assessment/PLAN: residual psychotic acuity in early phase improvement/ will reassess oral medications, outreach call to MOC pending 07/10/14 14:00 DAY UPDATE: remains residually with psychotic acuity per Nursing report; behaviorally in control and compliant with meds ON EXAM: continues to only tolerate brief contacts and then disorganizes with angry invectives and withdraws. ASSESSMENT/PLAN: slow-paced reintegration; pt quieter and calmer with more visibility in milieu and some selective social contact with other patients; eating in dining room, compliant with cares/meds/ no change in current meds; will review case with Dr. Cuevas on Wednesday; reassess meds post weekend. 07/13/16 DAY UPDATE: Objective: Vital Signs Temp Pulse Resp BP Pulse Ox 36.3 C 112 H 14 101/70 95 07/13/16 05:21 07/13/16 05:21 07/13/16 05:21 07/13/16 05:21 07/13/16 05:21 ICD10 Worksheet Patient Problems: Problems Problem Status Onset Acute (undifferentiated) schizophrenia Acute
[2016-07-13] MEDS: OMEGA-3 FATTY ACIDS 1,000 MG CAP PO SCH (08:17)
[2016-07-13] MEDS: BENZTROPINE MESYLATE 1 MG TAB PO SCH ×2 (08:17→20:28)
[2016-07-13] MEDS: metFORMIN HCL 500 MG TAB PO SCH ×2 (08:17→16:53)
[2016-07-13] MEDS: PIOGLITAZONE HCL 15 MG TAB PO SCH (08:17)
[2016-07-13] MEDS: QUEtiapine FUMARATE 200 MG TAB PO SCH (20:28)
[2016-07-13] MEDS: LITHIUM CARBONATE ER 450 MG TAB PO SCH (20:28)
[2016-07-13] MEDS: ATORVASTATIN CALCIUM 10 MG TAB PO SCH (20:28)
[2016-07-14 06:16] VITALS: TEMP 98.2
--- NOTE | 2016-07-14 07:51 | SOAPPROG ---
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 She recommends keeping pt on Prolixin Decanoate at 50 mg IM which i will do with expected injection later today. ON EXAM: pt seen sitting up in DR; maintains control and tolerates contact better altho does reach point in time when he again begins to escalate with PI and verbal harshness; does understand that the first prolixin injection will be later today ASSESSMENT/PLAN: residual psychotic acuity/ first Prolixin depot injection today = 50 mg IM; continue current management plan; call to [place] pending to expand the data base 07/09/16 11:10 DAY UPDATE: Nursing reports that pt cooperated with depot injection yesterday pm without incident, has remained in behavioral, control, isolative, still vulnerable to abusive language form time to time and continues to appear internally preoccupied ON EXAM: seen briefly, rapidly regressed to verbal invectives after neutral speech for 2 - 3 min; stopped when I withdrew; continues with compliance with po meds, taking meals; minimal interaction with other pts albeit not verbally abusive with other pts. Assessment/PLAN: residual psychotic acuity in early phase improvement/ will reassess oral medications, outreach call to MOC pending 07/10/14 14:00 DAY UPDATE: remains residually with psychotic acuity per Nursing report; behaviorally in control and compliant with meds ON EXAM: continues to only tolerate brief contacts and then disorganizes with angry invectives and withdraws. ASSESSMENT/PLAN: slow-paced reintegration; pt quieter and calmer with more visibility in milieu and some selective social contact with other patients; eating in dining room, compliant with cares/meds/ no change in current meds; will review case with Dr. Cuevas on Wednesday; reassess meds post weekend. 07/13/16 14:30 DAY UPDATE: Nursing reports that pt evidences improvement over the weekend; also noted in psychiatrist's PN's - pt calmer, more visible in milieu, thought process better organized when interqcting with staff and patients; still observed with self-dialogging incidents in which pt is irritable, using invectives in conversation with ? hallucinated persons; remains compliant with cares/med. INTAKE: spoke with Dr. Cuevas to update case clinically; she reports 2 hour meeting today with her community Team about planning post DC; no resolution reached to the dilemma created with his pattern of returning home post DC and resuming meth use; also reactive stress a/w with the transport to Clinic to get depot injection a second factor in driving pt's reactive crises; she states further discussions with senior [facility] clinical administrators happening later in week to try to find a solution to best followup for this patient. I said extending inpt stay and increasing depot dosing with next injection is our plan to optimize his reintegration. We will also taper Seroquel prior to DC as Dr. Cuevas pooints out pt has never complied with oral meds post DC by history ON EXAM: Pt acutally apologized for offensive language shared with me prior to the weekend; thought process very concrete and slightly vague but reality-based ; responsive to reintegrative support and positive feedback ASSESSMENT/PLAN: improving but not at optimal baseline/ inpt course extended and will updose depot Prolixin at next injection.. 07/14/16 DAY UPDATE: Objective: Vital Signs Temp Pulse Resp BP Pulse Ox 36.8 C 92 18 124/75 H 95 07/14/16 06:00 07/14/16 06:00 07/14/16 06:00 07/14/16 06:00 07/14/16 06:00 ICD10 Worksheet Patient Problems: Problems Problem Status Onset Acute (undifferentiated) schizophrenia Acute
[2016-07-14] MEDS: PIOGLITAZONE HCL 15 MG TAB PO SCH (08:30)
[2016-07-14] MEDS: BENZTROPINE MESYLATE 1 MG TAB PO SCH ×2 (08:30→20:19)
[2016-07-14] MEDS: metFORMIN HCL 500 MG TAB PO SCH ×2 (08:30→16:47)
[2016-07-14] MEDS: OMEGA-3 FATTY ACIDS 1,000 MG CAP PO SCH (08:30)
[2016-07-14] MEDS: QUEtiapine FUMARATE 200 MG TAB PO SCH (20:19)
[2016-07-14] MEDS: LITHIUM CARBONATE ER 450 MG TAB PO SCH (20:19)
[2016-07-14] MEDS: ATORVASTATIN CALCIUM 10 MG TAB PO SCH (20:19)
[2016-07-15 06:15] VITALS: BP 117/78; PULSE 95; RESP 14; O2SAT 97
--- NOTE | 2016-07-15 06:57 | SOAPPROG ---
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 She recommends keeping pt on Prolixin Decanoate at 50 mg IM which i will do with expected injection later today. ON EXAM: pt seen sitting up in DR; maintains control and tolerates contact better altho does reach point in time when he again begins to escalate with PI and verbal harshness; does understand that the first prolixin injection will be later today ASSESSMENT/PLAN: residual psychotic acuity/ first Prolixin depot injection today = 50 mg IM; continue current management plan; call to [place] pending to expand the data base 07/09/16 11:10 DAY UPDATE: Nursing reports that pt cooperated with depot injection yesterday pm without incident, has remained in behavioral, control, isolative, still vulnerable to abusive language form time to time and continues to appear internally preoccupied ON EXAM: seen briefly, rapidly regressed to verbal invectives after neutral speech for 2 - 3 min; stopped when I withdrew; continues with compliance with po meds, taking meals; minimal interaction with other pts albeit not verbally abusive with other pts. Assessment/PLAN: residual psychotic acuity in early phase improvement/ will reassess oral medications, outreach call to [facility]OC pending 07/10/14 14:00 DAY UPDATE: remains residually with psychotic acuity per Nursing report; behaviorally in control and compliant with meds ON EXAM: continues to only tolerate brief contacts and then disorganizes with angry invectives and withdraws. ASSESSMENT/PLAN: slow-paced reintegration; pt quieter and calmer with more visibility in milieu and some selective social contact with other patients; eating in dining room, compliant with cares/meds/ no change in current meds; will review case with Dr. Cuevas on Wednesday; reassess meds post weekend. 07/13/16 14:30 DAY UPDATE: Nursing reports that pt evidences improvement over the weekend; also noted in psychiatrist's PN's - pt calmer, more visible in milieu, thought process better organized when interacting with staff and patients; still observed with self-dialoging incidents in which pt is irritable, using invectives in conversation with ? hallucinated persons; remains compliant with cares/med. INTAKE: spoke with Dr. Cuevas to update case clinically; she reports 2 hour meeting today with her community Team about planning post DC; no resolution reached to the dilemma created with his pattern of returning home post DC and resuming meth use; also reactive stress a/w with the transport to Clinic to get depot injection a second factor in driving pt's reactive crises; she states further discussions with senior [facility] clinical administrators happening later in week to try to find a solution to best followup for this patient. I said extending inpt stay and increasing depot dosing with next injection is our plan to optimize his reintegration. We will also taper Seroquel prior to DC as Dr. uCevas points out pt has never complied with oral meds post DC by history ON EXAM: Pt actually apologized for offensive language shared with me prior to the weekend; thought process very concrete and slightly vague but reality-based ; responsive to reintegrative support and positive feedback ASSESSMENT/PLAN: improving but not at optimal baseline/ inpt course extended and will updose depot Prolixin at next injection.. 07/14/16 DAY UPDATE: Nursing reports pt is remaining in better behavioral control and thought process continues to clear; internal preoccupations observed to be lessening; continues compliant with cares/med. ON EXAM: presents a calm, cooperative, conversant at very concrete and somewhat loosely associated level; affect remains more neutral; gives me permission to call his mother; accepts that inpt stay extended to further stabilize and reformulate DC planning in conjunction with [facility] Team and Dr. Cuevas. ASSESSMENT/PLAN: paced improvement with gradually resolving psychotic acuity/ no change in current meds and management plan 07/15/16 DAY UPDATE: Objective: Vital Signs Temp Pulse Resp BP Pulse Ox 36.8 C 95 14 117/78 97 07/15/16 06:00 07/15/16 06:00 07/15/16 06:00 07/15/16 06:00 07/15/16 06:00 ICD10 Worksheet Patient Problems: Problems Problem Status Onset Acute (undifferentiated) schizophrenia Acute
[2016-07-15] MEDS: metFORMIN HCL 500 MG TAB PO SCH ×2 (09:16→17:18)
[2016-07-15] MEDS: BENZTROPINE MESYLATE 1 MG TAB PO SCH (09:16)
[2016-07-15] MEDS: PIOGLITAZONE HCL 15 MG TAB PO SCH (09:16)
[2016-07-15] MEDS: OMEGA-3 FATTY ACIDS 1,000 MG CAP PO SCH (09:17)
[2016-07-15] MEDS ORDERED: FLUPHENAZINE HCL PO SCH (14:15)
--- NOTE | 2016-07-15 14:25 | SOAPPROG ---
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 She recommends keeping pt on Prolixin Decanoate at 50 mg IM which i will do with expected injection later today. ON EXAM: pt seen sitting up in DR; maintains control and tolerates contact better altho does reach point in time when he again begins to escalate with PI and verbal harshness; does understand that the first prolixin injection will be later today ASSESSMENT/PLAN: residual psychotic acuity/ first Prolixin depot injection today = 50 mg IM; continue current management plan; call to [place] pending to expand the data base 07/09/16 11:10 DAY UPDATE: Nursing reports that pt cooperated with depot injection yesterday pm without incident, has remained in behavioral, control, isolative, still vulnerable to abusive language form time to time and continues to appear internally preoccupied ON EXAM: seen briefly, rapidly regressed to verbal invectives after neutral speech for 2 - 3 min; stopped when I withdrew; continues with compliance with po meds, taking meals; minimal interaction with other pts albeit not verbally abusive with other pts. Assessment/PLAN: residual psychotic acuity in early phase improvement/ will reassess oral medications, outreach call to [facility] pending 07/10/14 14:00 DAY UPDATE: remains residually with psychotic acuity per Nursing report; behaviorally in control and compliant with meds ON EXAM: continues to only tolerate brief contacts and then disorganizes with angry invectives and withdraws. ASSESSMENT/PLAN: slow-paced reintegration; pt quieter and calmer with more visibility in milieu and some selective social contact with other patients; eating in dining room, compliant with cares/meds/ no change in current meds; will review case with Dr. Cuevas on Wednesday; reassess meds post weekend. 07/13/16 14:30 DAY UPDATE: Nursing reports that pt evidences improvement over the weekend; also noted in psychiatrist's PN's - pt calmer, more visible in milieu, thought process better organized when interacting with staff and patients; still observed with self-dialoging incidents in which pt is irritable, using invectives in conversation with ? hallucinated persons; remains compliant with cares/med. INTAKE: spoke with Dr. Cuevas to update case clinically; she reports 2 hour meeting today with her community Team about planning post DC; no resolution reached to the dilemma created with his pattern of returning home post DC and resuming meth use; also reactive stress a/w with the transport to Clinic to get depot injection a second factor in driving pt's reactive crises; she states further discussions with senior [facility] clinical administrators happening later in week to try to find a solution to best followup for this patient. I said extending inpt stay and increasing depot dosing with next injection is our plan to optimize his reintegration. We will also taper Seroquel prior to DC as Dr. Cuevas points out pt has never complied with oral meds post DC by history ON EXAM: Pt actually apologized for offensive language shared with me prior to the weekend; thought process very concrete and slightly vague but reality-based ; responsive to reintegrative support and positive feedback ASSESSMENT/PLAN: improving but not at optimal baseline/ inpt course extended and will updose depot Prolixin at next injection.. 07/14/16 DAY UPDATE: Nursing reports pt is remaining in better behavioral control and thought process continues to clear; internal preoccupations observed to be lessening; continues compliant with cares/med. ON EXAM: presents a calm, cooperative, conversant at very concrete and somewhat loosely associated level; affect remains more neutral; gives me permission to call his mother; accepts that inpt stay extended to further stabilize and reformulate DC planning in conjunction with [facility] Team and Dr. Cuevas. ASSESSMENT/PLAN: paced improvement with gradually resolving psychotic acuity/ no change in current meds and management plan 07/15/16 1415 DAY Brief Discharge Note UPDATE: Nursing continues to report paced improvement with diminishing psychotic acuity ON EXAM: first contact pt presented with no overt psychosis, concrete and reality focussed, responsive to reintegrative support. second contact later in day pt presented again in organized and non-overtly psychotic manner; told pt about the upcoming transfer to [facility] which we just confirmed with [facility] as the disposition worked out by the [facility] system; pt accepted the news and maintained his composure, asked appropriate questions about why? and for how long? and accepted my answers a/w his building on the progress here to finish out his recovery at [facility] and LOS to be determined by his hospital Team at [facility] ASSESSMENT/PLAN: improving course; opt to be dc'd to [facility] later today call to MOC pending Meds as referenced below see DC Summary Objective: Vital Signs Temp Pulse Resp BP Pulse Ox 36.8 C 95 14 117/78 97 07/15/16 06:00 07/15/16 06:00 07/15/16 06:00 07/15/16 06:00 07/15/16 06:00 ICD10 Worksheet Patient Problems: Problems Problem Status Onset Acute (undifferentiated) schizophrenia Acute
--- NOTE | 2016-07-15 14:27 | SOAPPROG ---
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 She recommends keeping pt on Prolixin Decanoate at 50 mg IM which i will do with expected injection later today. ON EXAM: pt seen sitting up in DR; maintains control and tolerates contact better altho does reach point in time when he again begins to escalate with PI and verbal harshness; does understand that the first prolixin injection will be later today ASSESSMENT/PLAN: residual psychotic acuity/ first Prolixin depot injection today = 50 mg IM; continue current management plan; call to [place] pending to expand the data base 07/09/16 11:10 DAY UPDATE: Nursing reports that pt cooperated with depot injection yesterday pm without incident, has remained in behavioral, control, isolative, still vulnerable to abusive language form time to time and continues to appear internally preoccupied ON EXAM: seen briefly, rapidly regressed to verbal invectives after neutral speech for 2 - 3 min; stopped when I withdrew; continues with compliance with po meds, taking meals; minimal interaction with other pts albeit not verbally abusive with other pts. Assessment/PLAN: residual psychotic acuity in early phase improvement/ will reassess oral medications, outreach call to MOC pending 07/10/14 14:00 DAY UPDATE: remains residually with psychotic acuity per Nursing report; behaviorally in control and compliant with meds ON EXAM: continues to only tolerate brief contacts and then disorganizes with angry invectives and withdraws. ASSESSMENT/PLAN: slow-paced reintegration; pt quieter and calmer with more visibility in milieu and some selective social contact with other patients; eating in dining room, compliant with cares/meds/ no change in current meds; will review case with Dr. Cuevas on Wednesday; reassess meds post weekend. 07/13/16 14:30 DAY UPDATE: Nursing reports that pt evidences improvement over the weekend; also noted in psychiatrist's PN's - pt calmer, more visible in milieu, thought process better organized when interacting with staff and patients; still observed with self-dialoging incidents in which pt is irritable, using invectives in conversation with ? hallucinated persons; remains compliant with cares/med. INTAKE: spoke with Dr. Cuevas to update case clinically; she reports 2 hour meeting today with her community Team about planning post DC; no resolution reached to the dilemma created with his pattern of returning home post DC and resuming meth use; also reactive stress a/w with the transport to Clinic to get depot injection a second factor in driving pt's reactive crises; she states further discussions with senior [facility] clinical administrators happening later in week to try to find a solution to best followup for this patient. I said extending inpt stay and increasing depot dosing with next injection is our plan to optimize his reintegration. We will also taper Seroquel prior to DC as Dr. Cuevas points out pt has never complied with oral meds post DC by history ON EXAM: Pt actually apologized for offensive language shared with me prior to the weekend; thought process very concrete and slightly vague but reality-based ; responsive to reintegrative support and positive feedback ASSESSMENT/PLAN: improving but not at optimal baseline/ inpt course extended and will updose depot Prolixin at next injection.. 07/14/16 DAY UPDATE: Nursing reports pt is remaining in better behavioral control and thought process continues to clear; internal preoccupations observed to be lessening; continues compliant with cares/med. ON EXAM: presents a calm, cooperative, conversant at very concrete and somewhat loosely associated level; affect remains more neutral; gives me permission to call his mother; accepts that inpt stay extended to further stabilize and reformulate DC planning in conjunction with [facility] Team and Dr. Cuevas. ASSESSMENT/PLAN: paced improvement with gradually resolving psychotic acuity/ no change in current meds and management plan 07/15/16 1415 DAY Brief Discharge Note UPDATE: Nursing continues to report paced improvement with diminishing psychotic acuity ON EXAM: first contact pt presented with no overt psychosis, concrete and reality focussed, responsive to reintegrative support. second contact later in day pt presented again in organized and non-overtly psychotic manner; told pt about the upcoming transfer to [facility] which we just confirmed with [facility] as the disposition worked out by the P system; pt accepted the news and maintained his composure, asked appropriate questions about why? and for how long? and accepted my answers a/w his building on the progress here to finish out his recovery at [facility] and LOS to be determined by his hospital Team at [facility] ASSESSMENT/PLAN: improving course; opt to be dc'd to [facility] later today call to MOC pending Meds as referenced below see DC Summary 07/15/16 14:26 Medications Generic Name Dose Route Start Last Admin Trade Name Freq PRN Reason Stop Dose Admin Quetiapine Fumarate 50 mg 07/06/16 16:46 Seroquel PO 01/02/17 16:45 Q4 PRN ANXIETY Quetiapine Fumarate 200 mg 07/06/16 21:00 07/12/16 20:41 Seroquel PO 01/02/17 20:59 200 mg HS THONG [place] Carbonate 450 mg 07/06/16 21:00 07/14/16 20:19 Eskalith Cr PO 01/02/17 20:59 450 mg HS THONG Pioglitazone HCl 45 mg 07/07/16 09:00 07/15/16 09:16 Actos PO 01/03/17 08:59 45 mg DAILY THONG Fluphenazine Decanoate 50 mg 07/08/16 10:30 07/08/16 14:15 Fluphenazine Decanoate IM 01/04/17 10:29 50 mg Q21D THONG [place] Carbonate 450 mg 07/06/16 21:00 07/12/16 20:40 Eskalith Cr PO 01/02/17 20:59 450 mg HS THONG Lorazepam 0.5 - 1 mg 07/06/16 16:56 Ativan PO 01/02/17 16:55 Q4 PRN ANXIETY Olanzapine 10 mg 07/06/16 16:45 Zyprexa Zydis PO 01/02/17 16:44 Q4 PRN Agitation Atorvastatin Calcium 10 mg 07/06/16 21:00 07/14/16 20:19 Lipitor PO 01/02/17 20:59 10 mg HS THONG Benztropine Mesylate 1 mg 07/06/16 21:00 07/15/16 09:16 Cogentin PO 01/02/17 20:59 1 mg BID THONG Metformin HCl 500 mg 07/06/16 18:00 07/15/16 09:16 Glucophage PO 01/02/17 17:59 500 mg BIDMEAL THONG Josmn-0-Fuya Ethyl Esters 1,000 mg 07/07/16 09:00 07/15/16 09:17 Fish Oil PO 01/03/17 08:59 1,000 mg DAILY THONG Quetiapine Fumarate 200 mg 07/06/16 21:00 07/14/16 20:19 Seroquel PO 01/02/17 20:59 200 mg HS THONG Objective: Vital Signs Temp Pulse Resp BP Pulse Ox 36.8 C 95 14 117/78 97 07/15/16 06:00 07/15/16 06:00 07/15/16 06:00 07/15/16 06:00 07/15/16 06:00 ICD10 Worksheet Patient Problems: Problems Problem Status Onset Acute (undifferentiated) schizophrenia Acute
--- NOTE | 2016-08-06 08:15 | BDS ---
[f rep st] BEHAVIORAL HEALTH DISCHARGE SUMMARY IDENTIFICATION: The patient presented as a 51-year-old, white male who was admitted to [facility] on an M1 hold following medical clearance in the [facility] emergency room for com plaints of an acute psychotic decompensation. The patient lives alone in the community, is supporte d on a disability pension; he is a long-term open case with [facility] and has been diag nosed as suffering from a Schizoaffective Disorder. His 2nd major problem is the patient is methamp hetamine addicted. DISCHARGE DIAGNOSES: Erving I: 1. Schizophrenic Spectrum Disorder-acute exacerbation associated with florid paranoid psychotic dis organization and dyscontrolled verbal and physical aggressive behaviors prior to admission; improved in first phase. 2. Methamphetamine Use Disorder-chronic, severe, active prior to admission. 3. THC Use Disorder-chronic, severe, active prior to admission. 4. Alcohol Use Disorder-chronic, moderate, question level of activity prior to admission. 5. Rule out Benzodiazepine Use Disorder. Erving II: Deferred. Erving III: 1. No active medical problems. 2. Status post diabetes mellitus type 2-dyscontrol on admission secondary to noncompliance with met formin regimen. Erving IV: Stressors associated with active substance use disorders and noncompliance with psychiatri c medications following his last inpatient discharge on 06/10/2016. DISPOSITION: 1. Patient discharged for elective transfer and admission to the inpatient service at [facility]. 2. Medications at discharge as referenced below. REASON FOR ADMISSION: [place] is referred to the detailed Admission Psychiatric Assessment per Dr. An darnell dated July 06. In summary, the patient has a chronic syndromal history associated with recur ring instability of his Major Psychotic Disorder. Over the past year prior to this admission, the p kelvin had spent an extended time in inpatient treatment over a series of hospitalization. Most rec ently was hospitalized at [facility] in March, for typical acute psychotic decompensation associat ed with aggressively dyscontrolled behaviors. The patient was discontinued on 2 Depo medications he was receiving as an outpatient and transitioned to a 3rd Depo trial on Prolixin Deaconate, initiall y dosed at 37.4 mg. The patient stabilized sufficiently for discharge from the [facility] inpatient unit, step-down for time limited placement at the [facility]. However, he regressed and required rehospitalization at the [facility] inpatient service on 05/21/2016. He again re stabilized suffic iently for discharge on 06/10/2016. He was discharged directly to his own residence and for [facility] under the direction of his community psychiatrist, Dr. Carolyn Cortez. He had received a Depo inj ection of Prolixin dosed at 50 mg prior to his discharge from [facility]. He was due for his next i njection of Depo Prolixin on 07/01/2016. However, he resumed his methamphetamine use after the disc harge from [facility]. The [facility] team attempted to transport the patient to the clinic for his Depo i njection due on July 01. Patient became agitated, verbally abusive, and resistant. He also evidenc ed acute paranoid thinking. Dr. Cortez activated a court-ordered M3 and the patient was brought to [facility] emergency room by police in the p.m. 07/06/2016. There he was medically cleared, on direct exam found to be psychotically disorganized and verbally abusive. He was deemed gravely disabled and sent on to [address] [place] [address] on an M1 hold. SIGNIFICANT MEDICAL FINDINGS: Patient's physical exam was unremarkable, negative for any focal or s ystemic acuity. LABORATORY DATA: Lab screens preadmission included a BMP which was within normal limits, other than elevated blood sugar of 239, CBC was within normal limits, toxic screen was apparently not successf ully obtained. The patient remained medically stable throughout his inpatient course of treatment o n the psychiatric service. Patient's blood sugars improved during his inpatient course, ranging fro m 216-140 as patient complied with his maintenance metformin. HOSPITAL COURSE: On admission, the patient presented with evidence for paranoid ideation, persecuto ry delusions, outbursts of verbal abuse on direct contact with staff and myself. He initially was v lyric isolative and noted to be self dialoguing in his room. He did comply with medications including receiving the Depo Prolixin 50 mg IM on July 07, Seroquel 200 mg h.s., lithium carbonate 450 mg h. s., and Cogentin 1 mg twice daily. The patient also complied with his maintenance medical medicatio ns which are referenced below. His mental status showed patient improvement throughout his inpatien t stay. Improvement included diminished isolation and social interaction with selective patients. Patient also tolerated taking meals in the dining room as he re compensated. His thought process be came more organized including a here and now reality focus. Verbal outbursts also diminished signif icantly. I reviewed the case on [address] Cortez, the patient's [facility] prescriber. She empha sized the relative impasse in sustaining the patient stable in the community. She states there has been a long-term repeated pattern of patient not complying with medications despite the presence of a long-term Certification and court-authority to provide medications. She also cited the long-term problem of his active substance abuse, particularly citing patient's methamphetamine addiction. On my 2nd case review with Dr. Cortez, she stated she was continuing extended talks with the [facility] Insulation Batting Machine Operator to resolve dispositional planning. I was later informed that the [facility] would accept the patient in an elective transfer. With an open bed available, patient's discharge for elective admission to [facility] was affected. On the day of discharge, I explained th e plan for him to be extended in his inpatient treatment at [facility] to further improve his stabil ity and formulate a definitive discharge plan. The patient remained calm, organized, and accepted t his plan. CONDITION ON DISCHARGE: Improved. MENTAL STATUS EXAM: On final contact the patient remained calm, cooperative, and conversant. Thoug ht process was markedly concrete but not overtly psychotic in this last contact. The patient was af fectively stable-evidencing his baseline constricted and blunted affect. He understood my explanati on of the transfer to [facility] to extend his inpatient care. He was deemed sufficiently stable to be discharged and elected for extensions of inpatient care at [facility]. RISKS: Patient was deemed low risk for self-harm, harm to others, or inability to manage himself sa mickey in the followup inpatient environment at [facility]. ASSETS: The patient's sister is responding positively to the inpatient care, current cooperation wi th the inpatient plan including admission to [facility]; endorsement of this treatment plan by the p kelvin's family. DISCHARGE LEGAL STATUS: The patient's long-term Certification was actively maintained and transferr ed to the [facility]; the court-authorized medication plan was also maintained in an active status and transferred to the [facility] treatment team. DISCHARGE MEDICATIONS: Seroquel 50 mg p.o. q.4 and breakthrough anxiety, Seroquel 200 mg p.o. h.s., lithium carbonate/Eskalith CR 900 mg p.o. h.s., Actos 45 mg p.o. daily, Fluphenazine decanoate-50 m g IM; next injection due on 07/30/2016, Ativan 0.5-1 mg p.o. q.4h p.r.n. anxiety, Zydis Zyprexa 10 m g p.o. q.4h p.r.n. agitation, Lipitor 10 mg p.o. h.s., Cogentin 1 mg p.o. twice daily, Glucophage 50 0 mg p.o. twice daily with meals, fish oil 1000 mg p.o. daily. Patient given no prescriptions at time of discharge. /[id number]/MODL
== END 2016-07-15 17:43 | DRG 885 ==
LOC: EDUNIT# → BBEH 07-06 14:34
PROVIDERS: ADMIT Psychiatry & Neurology Psychiatry; ATTEND Psychiatry & Neurology Psychiatry
DX: F20.89 Other schizophrenia (principal); F15.90 Other stimulant use, unspecified, uncomplicated; F12.90 Cannabis use, unspecified, uncomplicated; E11.65 Type 2 diabetes mellitus with hyperglycemia; T38.3X6A Underdosing of insulin and oral hypoglycemic [antidiabetic] drugs, initial encounter
CPT/HCPCS: 80305; G0480; J2680